=== PATIENT | female | born 1965 | race Caucasian/White ===

== ENCOUNTER → 2016-09-11 | Outpatient (CLI) | payer OTHER ==
--- NOTE | 2016-09-12 14:32 | MM ---
Reason for exam: screening (asymptomatic). Last mammogram was performed 2 years and 11 months ago. History: Patient had first child at age 34. Family history of breast cancer in maternal grandmother at age 70. Retro-pectoral saline implants in both breasts, 2007. Benign excisional biopsy of the left breast, 1989. Taking hormonal contraceptives for 11 years 8 months beginning at age 34. Physical Findings: A clinical breast exam by your physician is recommended on an annual basis and results should be correlated with mammographic findings. MG 3D Screen Mammo Imp/Cad Bilateral CC, MLO, and ID view(s) were taken. Prior study comparison: October 21, 2013, CAD bilateral diagnostic mammogram. January 16, 2012, CAD bilateral diagnostic mammogram. The breast tissue is heterogeneously dense. This may lower the sensitivity of mammography. Finding #1: There is a circumscribed oval mass in the upper outer quadrant, middle position of the left breast. Finding #2: There are heterogeneous calcifications in the posterior, middle position of right breast. Subpectoral implants x 2. New finding since October 21, 2013 and January 16, 2012. ASSESSMENT: Incomplete: need additional imaging evaluation, BI-RAD 0 RECOMMENDATION: Special view mammogram of the right breast. Ultrasound of the left breast. [facility] will attempt to contact patient to return for supplemental views and ultrasound.
== END | disposition home or self-care (01) ==
LOC: RADMAMWWP 08:21
PROVIDERS: ATTEND Obstetrics & Gynecology
DX: Z12.31 Encounter for screening mammogram for malignant neoplasm of breast (principal); R92.2 Inconclusive mammogram
CPT/HCPCS: 77063; G0202

== ENCOUNTER → 2016-09-19 | Outpatient (CLI) | payer OTHER ==
--- NOTE | 2016-09-19 10:23 | MM ---
Reason for exam: additional evaluation requested from abnormal screening. Last mammogram was performed less than 1 month ago. History: Patient had first child at age 34. Family history of breast cancer in maternal grandmother at age 70. Retro-pectoral saline implants in both breasts, 2007. Benign excisional biopsy of the left breast, 1989. Taking hormonal contraceptives for 11 years 8 months beginning at age 34. Physical Findings: Nurse did not find any significant physical abnormalities on exam. MG 3D Work Up W/Cad RT LM, CC with magnification, LM with magnification, and ID view(s) were taken of the right breast. Prior study comparison: September 11, 2016, bilateral MG 3d screen mammo imp/cad. October 21, 2013, CAD bilateral diagnostic mammogram. Finding: There are diffuse/scattered calcifications in the central position of the right breast. These results were verbally communicated with the patient and result sheet given to the patient on 09/19/16. ASSESSMENT: Probably benign, BI-RAD 3 RECOMMENDATION: Follow-up diagnostic mammogram of the right breast in 6 months.
--- NOTE | 2016-09-19 10:25 | USB ---
Reason for exam: additional evaluation requested from abnormal screening. History: Patient had first child at age 34. Family history of breast cancer in maternal grandmother at age 70. Retro-pectoral saline implants in both breasts, 2007. Benign excisional biopsy of the left breast, 1989. Taking hormonal contraceptives for 11 years 8 months beginning at age 34. US Breast Workup LT Left breast ultrasound demonstrates a 0.31 x 0.19 x 0.26cm lesion too small to characterize at 1:30 and a 0.46 x 0.18 x 0.65cm cystic cluster at 2 o'clock. These results were verbally communicated with the patient and result sheet given to the patient on 09/19/16. ASSESSMENT: Benign, BI-RAD 2 RECOMMENDATION: Return to routine screening mammogram schedule for both breasts.
== END | disposition home or self-care (01) ==
LOC: RADMAMWWP 09:06
PROVIDERS: ATTEND Obstetrics & Gynecology
DX: R92.8 Other abnormal and inconclusive findings on diagnostic imaging of breast (principal)
CPT/HCPCS: 76642; G0206; G0279

== ENCOUNTER → 2017-10-02 | Outpatient (CLI) | payer OTHER ==
--- NOTE | 2017-10-02 11:01 | WWHP ---
[facility] - HISTORY AND PHYSICAL DATE OF SERVICE: 10/02/2017 CHIEF COMPLAINT: The patient is here for her routine gynecologic exam. HPI: This is a 52-year-old G2, P2, with an LMP of approximately 2011. She states she has been essentially amenorrheic while on Depo-Provera and the Mirena IUD. She is currently on her second Mirena IUD which was placed in 08/2016. Prior to her first Mirena IUD, she used Depo-Provera for a number of years. She states she has had about 3 periods over the last 16 years. She denies any hot flashes. She has been experiencing some infrequent left breast tingling and discomfort. She states it feels like when her leg "falls asleep." The tingling can go from the left breast to the back and can last up to 10 seconds. This has been happening about once a night during the last 3 weeks, but has been less frequent in the last few days. PAST MEDICAL HISTORY: History of elevated cholesterol, which has been diet controlled. MEDICATIONS: None. ALLERGIES: SULFA and PENICILLIN, both of which caused hives. PAST SURGICAL HISTORY: Bladder sling procedure 2013, bilateral breast augmentation surgery 2017 and knee surgery in the past. PAST OB HISTORY: Two vaginal deliveries. 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 She has no history of STDs. SOCIAL HISTORY: She denies tobacco and drug use and has about 4 alcohol-containing drinks per week. She has been since 1993 and does not work outside the home. FAMILY HISTORY: Maternal grandmother had breast cancer. Mother had pancreatic cancer. Father had lung cancer. Paternal grandmother had an NH. REVIEW OF SYSTEMS: Weight has been stable. She denies respiratory, cardiac or GI problems. PHYSICAL EXAM: Blood pressure 143/98, height 5 feet 5 inches, weight 194 pounds, BMI 32. temperature 97.1, pulse 54. This is a well-developed, well-nourished, white female, who is alert and oriented x3, in no acute distress. HEENT is within normal limits. NECK: Supple without mass or thyromegaly. CHEST AND LUNGS: Clear to auscultation. HEART: Regular rate and rhythm. Breasts are without mass or discharge and they are consistent with bilateral breast implants. Axillary exam is negative for adenopathy. BACK: Negative for CVA tenderness. ABDOMEN: Soft, nontender, without palpable masses. PELVIC EXAM: Normal external genitalia. Cervix and vagina reveals a grade 2 rectocele. The cervix appears normal and there is IUD string protruding approximately 3 cm from the os. There is no unusual discharge. There is no cervical motion tenderness. There is no other evidence of prolapse. The uterus is mid position, nongravid size and nontender. There are no palpable adnexal masses or tenderness. Rectovaginal exam is negative for mass or tenderness and does confirm a small rectocele and this is negative for occult blood. EXTREMITIES: Nontender. IMPRESSION: 1. A 52-year-old female, doing well with the Mirena IUD. 2. Asymptomatic grade 2 rectocele. 3. Many years of amenorrhea secondary to the Mirena IUD and previous use of the Depo- Provera. Probable perimenopause based on her age. 4. Intermittent left breast paresthesias. PLAN: 1. Pap smear was performed. 2. Self breast examination was discussed. 3. I have recommended a diagnostic mammogram because of a previous abnormal mammogram on 09/11/2016. Following a right-sided workup on 09/19/2016, a diagnostic right mammogram was recommended after 6 months, but she states she did not have this done. Diagnostic mammogram was ordered and this will also be used to evaluate the left-sided paresthesias that she has noticed intermittently. There are no significant physical findings on breast exam at this time. 4. Osteoporosis prevention was discussed. 5. She will return in one year and p.r.n. MMODL / IJN: [id number] /
== END | disposition home or self-care (01) ==
LOC: WWCWWP 08:05
PROVIDERS: ATTEND Obstetrics & Gynecology
DX: Z53.9 Procedure and treatment not carried out, unspecified reason (principal)

== ENCOUNTER → 2017-10-23 | Outpatient (CLI) | payer OTHER ==
--- NOTE | 2017-10-23 09:44 | MM ---
Reason for exam: additional evaluation requested from prior study. Last mammogram was performed 10 months ago. History: Patient had first child at age 34. Family history of breast cancer in maternal grandmother at age 70. Retro-pectoral saline implants in both breasts, 2007. Benign excisional biopsy of the left breast, 1989. Taking hormonal contraceptives for 11 years 8 months beginning at age 34. Physical Findings: Nurse did not find any significant physical abnormalities on exam. MG 3D Diag Mammo Imp W/Cad SANDRA Bilateral CC, MLO, and ID view(s) were taken. Prior study comparison: December 13, 2016, mammogram, performed at [facility]. September 19, 2016, right breast MG 3d work up w/cad RT. The breast tissue is heterogeneously dense. This may lower the sensitivity of mammography. There is chronic nodularity bilaterally. There is no dominant lesion. Stable bilateral implants. No significant new findings when compared with previous films. These results were verbally communicated with the patient and result sheet given to the patient on 10/23/17. ASSESSMENT: Benign, BI-RAD 2 RECOMMENDATION: Routine screening mammogram of both breasts in 1 year. Manage patient on a clinical basis.
== END | disposition home or self-care (01) ==
LOC: RADMAMWWP 08:08
PROVIDERS: ATTEND Obstetrics & Gynecology
DX: R92.8 Other abnormal and inconclusive findings on diagnostic imaging of breast (principal); N64.4 Mastodynia; Z98.82 Breast implant status
CPT/HCPCS: 77066; G0279

== ENCOUNTER → 2019-05-05 | Outpatient (CLI) | payer OTHER ==
[2019-05-05 09:46] VITALS: BP 133/91; PULSE 73; RESP 16; TEMP 97.8; BMI 31.6
--- NOTE | 2019-05-05 10:28 | P.HPOB ---
History of Present Illness H&P Date: 05/05/19 Chief Complaint: The patient is here for her routine gynecologic exam and ma mmogram. This is a 53-year-old with an LMP of 2011. The patient has a Marine IUD in place since August 2016. This is her 2nd Thuy IUD. She states she has noticed occasional infrequent vaginal odor without discharge. She currently does not have any odor today. She denies hot flashes. She has felt colder than usual. She states she has had difficulty losing weight with diet and exercise. Review of Systems The patient has lost 4 pounds over the last year. She denies respiratory, cardiac, or G.I. problems. Past Medical History Past Medical History: Hyperlipidemia Additional Past Medical History / Comment(s): Elevated cholesterol which has been diet controlled. 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 History of Any Multi-Drug Resistant Organisms: None Reported Past Surgical History: Breast Surgery, Orthopedic Surgery Additional Past Surgical History / Comment(s): Bladder sling procedure 2013, bilateral breast augmentation 2017. Knee surgery. Past Psychological History: No Psychological Hx Reported Smoking Status: Never smoker Past Alcohol Use History: Occasional (0-1 per week) Past Drug Use History: None Reported Additional History: She has been since 1993 and does not work outside of the home. - Past Family History Mother Family Medical History: Cancer Additional Family Medical History / Comment(s): Pancreatic cancer. Maternal grandmother had breast cancer. Father Family Medical History: Cancer Additional Family Medical History / Comment(s): Lung cancer. Paternal grandmother had an ME. Medications and Allergies Home Medications Medication Instructions Recorded Confirmed Type No Known Home Medications 05/05/19 05/05/19 History Allergies Allergy/AdvReac Type Severity Reaction Status Date / Time Penicillins AdvReac Rash/Hives Unverified 05/05/19 09:42 Sulfa (Sulfonamide AdvReac Rash/Hives Unverified 05/05/19 09:42 Antibiotics) Exam Vital Signs Temp Pulse Resp BP Pulse Ox 05/05/19 09:43 97.8 F 73 16 133/91 98 Intake and Output 05/04/19 05/05/19 05/05/19 22:59 06:59 14:59 Other: Weight 86.183 kg Height 5'5", weight 190 pounds, BMI 31.6. This is a well-developed well-nourished white female who is alert and oriented times 3 in no acute distress. HEENT: Within normal limits. NECK: Supple without mass or thyromegaly. CHEST AND LUNGS: Clear to auscultation. HEART: Regular rate and rhythm. BREASTS: Are without mass or discharge. Consistent with bilateral implants. AXILLARY EXAM: Negative for adenopathy. BACK: Negative for CVA tenderness. ABDOMEN: Soft, nontender, without palpable masses. PELVIC EXAM: Normal external genitalia. Cervix shows a IUD string protruding approximately 2.5 cm. There is an endocervical polyp measuring approximately 4 mm and has a benign parents. There is no unusual discharge. No vaginal odor is noted. There i a stable grade to rectocele with no other evidence of prolapse. The uterus is midposition, nongravid size and nontender. There are no palpable adnexal masses or tenderness. RECTAL EXAM:rectal vaginal exam is negative for mass or tenderness and is negative for occult blood. EXTREMITIES: Nontender. IMPRESSION: 1 53 year old female doing well with Mirena IUD. 2. Benign appearing small endocervical polyp. 3. Asymptomatic grade to rectocele which is stable. 4. Occasional possible vaginal odor per the patient with no significant physical findings at this time. PLAN: 1. Pap smear was performed because of the finding of the endocervical polyp. If benign, conservative management. 2. Self breast awareness was discussed with the patient. 3. Screening mammogram will be done today. 4. I have recommended that she speak with Dr. Valdivia about screening colonoscopy as well as screening blood work. She will also talk to her about possible thyroid testing because of her symptoms. 5. Osteoporosis prevention was discussed. I have stressed the importance of adequate calcium, vitamin D and regular exercise. Recommended amounts of calcium and vitamin D were also discussed. 6. She was advised to return in one year for her annual well woman exam.
--- NOTE | 2019-05-06 10:50 | MM ---
Reason for exam: screening (asymptomatic). Last mammogram was performed 1 year and 6 months ago. History: Patient had first child at age 34. Family history of breast cancer in maternal grandmother at age 70. Retro-pectoral saline implants in both breasts, 2007. Benign excisional biopsy of the left breast, 1989. Taking hormonal contraceptives for 11 years 8 months beginning at age 34. Physical Findings: A clinical breast exam by your physician is recommended on an annual basis and results should be correlated with mammographic findings. MG 3D Screen Mammo Imp/Cad Bilateral CC, MLO, and ID view(s) were taken. Prior study comparison: October 23, 2017, bilateral MG 3d diag mammo imp w/cad SANDRA. December 13, 2016, mammogram, performed at [facility]. The breast tissue is heterogeneously dense. This may lower the sensitivity of mammography. Finding: There is a typically benign stable circumscribed oval mass in the lower inner quadrant, middle depth of the left breast. There are benign appearing calcifications. No suspicious abnormality. Bilateral retropectoral saline implants. No significant changes in finding since October 23, 2017 and December 13, 2016. ASSESSMENT: Benign, BI-RAD 2 RECOMMENDATION: Routine screening mammogram of both breasts in 1 year.
== END | disposition home or self-care (01) ==
LOC: WWCWWP 09:34
PROVIDERS: ATTEND Obstetrics & Gynecology
DX: Z12.31 Encounter for screening mammogram for malignant neoplasm of breast (principal); Z98.82 Breast implant status
CPT/HCPCS: 77063; 77067

== ENCOUNTER 2020-07-15 10:01 | Day surgery (SDC) | payer OTHER ==
[2020-07-13 14:17] VITALS: BMI 28.3
[~2020-07-15 10:01] MED LIST: LACTATED RINGERS 1,000 ML IV SCH
[2020-07-15 10:25] VITALS: RESP 16; TEMP 99.2
[2020-07-15] MEDS ORDERED: LIDOCAINE 1% INJ 10MG/ML (20 ML MDV) ONE (11:27)
[2020-07-15] MEDS ORDERED: PROPOFOL 10 MG/ML 20 ML VIAL IV ONE (11:27)
--- NOTE | 2020-07-15 11:50 | P.PCN ---
Date of Procedure: 07/15/20 Procedure(s) Performed: BRIEF HISTORY: Patient is a 54-year-old pleasant female scheduled for an elective colonoscopy as a part of screening for colorectal neoplasia. PROCEDURE PERFORMED: Colonoscopy. PREOPERATIVE DIAGNOSIS: Screening for colon cancer. IV sedation per Anesthesia. PROCEDURE: After informed consent was obtained, the patient, was brought into the endoscopy unit. IV sedation was administered by Anesthesia under continuous monitoring. Digital rectal examination was normal. Initially the Olympus CF-160 flexible video colonoscope was then inserted in the rectum, gradually advanced into the cecum without any difficulty. Careful examination was performed as the scope was gradually being withdrawn. Ileocecal valve and the appendiceal orifice were visualized and appeared normal. Prep was excellent. Mucosa of the cecum, ascending colon, transverse colon, descending colon, sigmoid colon, and rectum appeared normal. Retroflexion was performed in the rectum and no lesions were seen. The patient tolerated the procedure well. IMPRESSION: Normal-appearing colon from rectum to cecum with no evidence of colorectal neoplasia. RECOMMENDATIONS: Findings of this examination were discussed with the patient as well as her family. She was advised to have a repeat screening colonoscopy in 10 years
[2020-07-15 12:48] VITALS: BP 146/87; PULSE 56
== END 2020-07-15 12:35 | disposition home or self-care (01) ==
LOC: ORWHC2ENDO 10:01
PROVIDERS: ATTEND Internal Medicine Gastroenterology
DX: Z12.11 Encounter for screening for malignant neoplasm of colon (principal); Z88.0 Allergy status to penicillin; Z88.2 Allergy status to sulfonamides; E66.9 Obesity, unspecified; Z68.31 Body mass index [BMI] 31.0-31.9, adult
CPT/HCPCS: 81025; J2001; J2704; G0121

== ENCOUNTER → 2020-11-01 | Outpatient (CLI) | payer OTHER ==
[2020-11-01 08:10] VITALS: BP 132/92; PULSE 67; RESP 16; TEMP 98.3
--- NOTE | 2020-11-01 09:08 | P.HPOB ---
History of Present Illness H&P Date: 11/01/20 Chief Complaint: The patient is here for her routine gynecologic exam and ma mmogram. This is a 55-year-old with an LMP of 2011. The patient has been amenorrheic since she started using the Mirena IUD in 2011. Her second Mirena IUD was placed in July 2016. She denies any significant hot flashes, but states she no longer is cold like she used to be. She has been experiencing insomnia were she finds it difficult to stay asleep through the entire night and this has gone on for 10 years. She is otherwise without complaints. Review of Systems The patient has lost 4 pounds over the last year. She denies respiratory, cardiac, or G.I. problems. Past Medical History Past Medical History: Hyperlipidemia Additional Past Medical History / Comment(s): was hospitalized October 2019 for staph infection in foot. 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 History of Any Multi-Drug Resistant Organisms: None Reported Past Surgical History: Breast Surgery, Orthopedic Surgery Additional Past Surgical History / Comment(s): Bladder sling procedure 2013, bilateral breast augmentation 2017. Knee surgery. Colonoscopy 2020(next after 10yr) Past Anesthesia/Blood Transfusion Reactions: No Reported Reaction Past Psychological History: No Psychological Hx Reported Smoking Status: Never smoker Past Alcohol Use History: Rare (2 per Year) Past Drug Use History: None Reported Additional History: She has been since 1993 and does not work outside the home. She exercises with weights regularly. - Past Family History Mother Family Medical History: Cancer Additional Family Medical History / Comment(s): Pancreatic cancer. Maternal grandmother had breast cancer. Father Family Medical History: Cancer Additional Family Medical History / Comment(s): Lung cancer. Paternal grandmother had an AR. Medications and Allergies Home Medications Medication Instructions Recorded Confirmed Type Levonorgestrel [Mirena] 1 each IY DAILY 05/05/19 11/01/20 History Cbd Gummies For Recovery 2 cap PO DAILY 11/01/20 11/01/20 History Cholecalciferol [Vitamin D3 (25 25 mcg PO DAILY 11/01/20 11/01/20 History Mcg = 1000 Iu)] Inulin/Chromium Picolinate [Fiber 1 each PO DAILY 11/01/20 11/01/20 History Gummies Chew] Vitamin B Complex 1 each PO DAILY 11/01/20 11/01/20 History Z-Quil 2 tab PO HS 11/01/20 11/01/20 History Zinc 50 mg PO DAILY 11/01/20 11/01/20 History Allergies Allergy/AdvReac Type Severity Reaction Status Date / Time Penicillins AdvReac Rash/Hives Unverified 11/01/20 08:00 Sulfa (Sulfonamide AdvReac Rash/Hives Unverified 11/01/20 08:00 Antibiotics) Exam Vital Signs Temp Pulse Resp BP Pulse Ox 11/01/20 08:05 98.3 F 67 16 132/92 98 Intake and Output 10/31/20 11/01/20 11/01/20 22:59 06:59 14:59 Other: Weight 84.368 kg Height 5 feet 4 inches, weight 186 pounds, BMI 31.9. This is a well-developed well-nourished white female who is alert and oriented times 3 in no acute distress. HEENT: Within normal limits. NECK: Supple without mass or thyromegaly. CHEST AND LUNGS: Clear to auscultation. HEART: Regular rate and rhythm. BREASTS: Are without mass or discharge. The breasts are consistent with bilateral implants. AXILLARY EXAM: Negative for adenopathy. BACK: Negative for CVA tenderness. ABDOMEN: Soft, nontender, without palpable masses. PELVIC EXAM: Normal external genitalia. Cervix has an endocervical polyp measuring presently 5 mm and has a benign appearance. The IUD string protrudes from the cervix approximately 2 cm. There is no unusual discharge. There is a grade 2 rectocele which is stable from her previous exam. The uterus is midposition, nongravid size and nontender. There are no palpable adnexal masses or tenderness. RECTAL EXAM: Rectovaginal exam is negative for mass or tenderness and is negative for occult blood. The exam is also consistent with a small rectocele. EXTREMITIES: Nontender. IMPRESSION: 1. 55-year-old perimenopausal female doing well with the Mirena IUD. 2. Benign-appearing endocervical polyp which has been followed conservatively. 3. Asymptomatic grade 2 rectocele which is stable. 4. Insomnia which may or may not be related to menopausal changes. Since she has had some degree of insomnia for 10 years, I doubt that it is completely due to the menopausal change. PLAN: 1. Pap smear was deferred since she had a normal one on 05/05/2019. 2. Self breast awareness was discussed with the patient. 3. Screening mammogram will be done today. 4. We will continue to follow up the endocervical polyp and grade 2 rectocele conservatively. 5. Blood tests today will include FSH, estradiol, and TSH. The order slip was given to the patient for this. 6. If the blood tests are consistent with full menopause, we will consider removing the Mirena IUD. If it is not consistent with menopause, we will consider using the Mirena IUD until she is menopausal since that should be in the near future. She understands the Mirena IUD is approved for 5 years use, but since the IUD still has much of its effectiveness beyond 5 years and since she is very close to the full menopause, there is probably benefit to extending its use slightly beyond 5 years. 7. She was advised to return in one year for her annual well woman exam.
--- NOTE | 2020-11-01 12:01 | MM ---
Reason for exam: screening (asymptomatic). Last mammogram was performed 1 year and 6 months ago. History: Patient had first child at age 34. Family history of breast cancer in maternal grandmother at age 70. Retro-pectoral saline implants in both breasts, 2007. Benign excisional biopsy of the left breast, 1989. Taking hormonal contraceptives for 11 years 8 months beginning at age 34. Physical Findings: A clinical breast exam by your physician is recommended on an annual basis and results should be correlated with mammographic findings. MG 3D Screen Mammo Imp/Cad Bilateral CC, MLO, and ID view(s) were taken. Prior study comparison: May 05, 2019, bilateral MG 3d screen mammo imp/cad. October 23, 2017, bilateral MG 3d diag mammo imp w/cad SANDRA. The breast tissue is heterogeneously dense. This may lower the sensitivity of mammography. Finding #1: There is a 7 mm circumscribed round mass in the upper outer quadrant, middle position of the right breast including developing nodularity in the right breast. Finding #2: There are typically benign round calcifications in both breasts. Bilateral subpectoral implants redemonstrated. ASSESSMENT: Incomplete: need additional imaging evaluation, BI-RAD 0 RECOMMENDATION: Ultrasound of the right breast. [facility] will attempt to contact patient to return for ultrasound.
[2020-11-01 15:23] LABS: Follicle Stimulating Hormone 83.8 mIU/mL
[2020-11-01 15:26] LABS: Estradiol 17.4 pg/mL
--- NOTE | 2020-11-02 14:20 | P.PN ---
Progress Note - Text Progress Note Date: 11/02/20 OUTPATIENT FOLLOW-UP NOTE TEST(S)/RESULTS: Test results from 11/01/2020 include screening mammogram that requires a right breast ultrasound follow-up. FSH was elevated 83.8, estradiol 17.4 consistent with postmenopausal, and TSH was normal. METHOD OF NOTIFICATION: She was notified by phone. PATIENT COMMENTS: The patient has an appointment for the right breast ultrasound on 11/08/2020. DIAGNOSIS: Screening mammogram requiring right breast workup. Blood tests consistent with postmenopausal status. DISCUSSION: With the FSH and estradiol being consistent with menopause, she no longer is in need of control and we can remove the Mirena IUD. She will make an appointment at a later date to have this removed sometime this year. She will call if she is having significant menopausal symptoms. She denies any significant hot flashes but has had insomnia which she has had for more than 10 years. PLAN: As above. She was advised to return in one year for her annual well woman exam and as needed.
== END ==
LOC: WWCWWP 07:46
PROVIDERS: ATTEND Obstetrics & Gynecology
DX: N95.9 Unspecified menopausal and perimenopausal disorder (principal); N84.1 Polyp of cervix uteri; N81.6 Rectocele; G47.00 Insomnia, unspecified; E78.5 Hyperlipidemia, unspecified; Z12.31 Encounter for screening mammogram for malignant neoplasm of breast
CPT/HCPCS: 77063; 77067; 82670; 83001; 84443

== ENCOUNTER → 2020-11-08 | Outpatient (CLI) | payer OTHER ==
--- NOTE | 2020-11-08 13:43 | USB ---
Reason for exam: additional evaluation requested from abnormal screening. History: Patient had first child at age 34. Family history of breast cancer in maternal grandmother at age 70. Retro-pectoral saline implants in both breasts, 2007. Benign excisional biopsy of the left breast, 1989. Taking hormonal contraceptives for 11 years 8 months beginning at age 34. Physical Findings: Nurse Summary: 0.5cm nodule in the right breast at 8 o'clock (nurse mj). US Breast Workup Limited RT Right limited breast ultrasound including focal area of concern, retroareolar and axilla demonstrates a 0.7 x 0.5 x 0.6cm mixed, complex cyst at 8 o'clock. These results were verbally communicated with the patient and result sheet given to the patient on 11/08/20. ASSESSMENT: Probably benign, BI-RAD 3 RECOMMENDATION: Follow-up diagnostic mammogram and ultrasound of the right breast in 6 months.
--- NOTE | 2020-11-09 10:16 | P.PN ---
Progress Note - Text Progress Note Date: 11/09/20 The patient was given the results of her right breast workup at the time of the imaging studies on 11/08/2020. The assessment was probably benign. The recommendation was for a follow-up diagnostic mammogram and ultrasound of the right breast in 6 months. The order slip will be mailed to the patient for this.
== END ==
LOC: RADUSWWP 12:45
PROVIDERS: ATTEND Obstetrics & Gynecology
DX: R92.8 Other abnormal and inconclusive findings on diagnostic imaging of breast (principal); Z80.3 Family history of malignant neoplasm of breast

== ENCOUNTER → 2021-05-25 | Outpatient (CLI) | payer OTHER ==
--- NOTE | 2021-05-25 14:45 | MM ---
Reason for exam: follow-up at short interval from prior study. Last mammogram was performed 7 months ago. History: Patient had first child at age 34. Family history of breast cancer in maternal grandmother at age 70. Retro-pectoral saline implants in both breasts, 2007. Benign excisional biopsy of the left breast, 1989. Taking hormonal contraceptives for 11 years 8 months beginning at age 34. Physical Findings: Nurse Summary: 0.5cm nodule in the right breast at 8 o'clock (nurse TM). MG 3D Diag Mammo Imp W/Cad RT CC, MLO, and ID view(s) were taken of the right breast. Prior study comparison: November 08, 2020, right breast US breast workup limited RT. November 01, 2020, bilateral MG 3d screen mammo imp/cad. May 05, 2019, bilateral MG 3d screen mammo imp/cad. There are scattered fibroglandular densities. Retropectoral saline implant. 9-10 o'clock circumscribed nodule versus 7mm previously. Overlying palpable marker. These results were verbally communicated with the patient and result sheet given to the patient on 05/25/21. ASSESSMENT: Incomplete: need additional imaging evaluation, BI-RAD 0 RECOMMENDATION: Ultrasound of the right breast.
--- NOTE | 2021-05-25 14:47 | USB ---
Reason for exam: additional evaluation requested from abnormal screening. History: Patient had first child at age 34. Family history of breast cancer in maternal grandmother at age 70. Retro-pectoral saline implants in both breasts, 2007. Benign excisional biopsy of the left breast, 1989. Taking hormonal contraceptives for 11 years 8 months beginning at age 34. US Breast Limited RT Right limited breast ultrasound including focal area of concern, retroareolar and axilla demonstrates a 0.6 x 0.7 x 0.7cm cystic lesion with debris at 8 o'clock. Stable for 6 months. As this is new and palpable, continued follow up mammogram recommended. Scanned 6-9 o'clock. These results were verbally communicated with the patient and result sheet given to the patient on 05/25/21. ASSESSMENT: Probably benign, BI-RAD 3 RECOMMENDATION: Follow-up diagnostic mammogram of both breasts in 6 months.
== END ==
LOC: RADMAMWWP 12:45
PROVIDERS: ATTEND Obstetrics & Gynecology
DX: N60.01 Solitary cyst of right breast (principal); N64.89 Other specified disorders of breast; Z80.3 Family history of malignant neoplasm of breast
CPT/HCPCS: 77061; 77065

== ENCOUNTER → 2022-01-24 | Outpatient (CLI) | payer OTHER ==
[2022-01-24 09:30] VITALS: BP 134/89; PULSE 84; RESP 17; TEMP 98.3
--- NOTE | 2022-01-24 10:32 | P.HPOB ---
History of Present Illness H&P Date: 01/24/22 Chief Complaint: The patient is here for her routine gynecologic exam and ma mmogram. This is a 56-year-old with an LMP of 2011. The patient had has a Mirena IUD in place since July 2016. She denies any significant hot flashes. FSH on 11/01/2020 was 84 and estradiol was 17. She is without gynecologic complaints and denies any vaginal bleeding. She has been amenorrheic since she first started using the Mirena IUD in 2011. She would like to confirm that she is menopausal to make sure she does not need to use control anymore. She continues to have insomnia and she has had this for many years. She recently started using CBD gummies to help her sleep and this seems to be helpful. Review of Systems The patient has lost 10 pounds over the last year. Weight loss has been intentional and she has been exercising regularly. She denies respiratory, cardiac, or G.I. problems. 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 History of Any Multi-Drug Resistant Organisms: None Reported Past Surgical History: Breast Surgery, Orthopedic Surgery Additional Past Surgical History / Comment(s): Bladder sling procedure 2013, bilateral breast augmentation (saline implants)2017. Knee surgery. Colonoscopy 2020(next after 10yr) Past Anesthesia/Blood Transfusion Reactions: No Reported Reaction Past Psychological History: No Psychological Hx Reported Smoking Status: Never smoker Past Alcohol Use History: Rare (2 per year) Past Drug Use History: None Reported Additional History: She has been since 1993 and does not work outside of the home. She exercises regularly. - Past Family History Mother Family Medical History: Cancer Additional Family Medical History / Comment(s): Pancreatic cancer. Maternal grandmother had breast cancer. Father Family Medical History: Cancer Additional Family Medical History / Comment(s): Lung cancer. Paternal grandmother had an CA. Medications and Allergies Home Medications Medication Instructions Recorded Confirmed Type levonorgestreL [Mirena] 1 each IY DAILY 05/05/19 01/24/22 History Cbd Gummies For Recovery 2 cap PO DAILY 11/01/20 01/24/22 History Cholecalciferol [Vitamin D3 (25 25 mcg PO DAILY 11/01/20 01/24/22 History Mcg = 1000 Iu)] Vitamin B Complex 1 each PO DAILY 11/01/20 01/24/22 History Atorvastatin Calcium [Lipitor] 15 mg PO DAILY 01/24/22 01/24/22 History Multivitamin [Multivitamins Adult 1 tab PO DAILY 01/24/22 01/24/22 History Gummies] Prasterone (Dhea) [Dhea 25] 25 mg PO DAILY 01/24/22 01/24/22 History Ubidecarenone [Co Q-10] 300 mg PO DAILY 01/24/22 01/24/22 History Allergies Allergy/AdvReac Type Severity Reaction Status Date / Time Penicillins AdvReac Rash/Hives Unverified 01/24/22 09:23 Sulfa (Sulfonamide AdvReac Rash/Hives Unverified 01/24/22 09:23 Antibiotics) Exam Vital Signs Temp Pulse Resp BP Pulse Ox 01/24/22 09:27 98.3 F 84 17 134/89 97 Intake and Output 01/23/22 01/24/22 01/24/22 22:59 06:59 14:59 Other: Weight 79.832 kg Height 5 feet 5 inches, weight 176 pounds, BMI 29.3. This is a well-developed well-nourished white female who is alert and oriented times 3 in no acute distress. HEENT: Within normal limits. NECK: Supple without mass or thyromegaly. CHEST AND LUNGS: Clear to auscultation. HEART: Regular rate and rhythm. BREASTS: Are without mass or discharge. Breasts are consistent with bilateral implants. Implants are soft. AXILLARY EXAM: Negative for adenopathy. BACK: Negative for CVA tenderness. ABDOMEN: Soft, nontender, without palpable masses. PELVIC EXAM: Normal external genitalia. Vagina appears normal. The cervix has a polyp at the opening measuring 10 mm which is on a thin stalk. The IUD string is visible and protrudes from the cervix approximately 2 cm. There is no unusual discharge. There is no evidence of prolapse. The uterus is midposition, nongravid size and nontender. There are no palpable adnexal masses or tenderness. RECTAL EXAM: Rectovaginal exam is negative for mass or tenderness and is negative for occult blood. EXTREMITIES: Nontender. IMPRESSION: 1. 56-year-old perimenopausal female with a Mirena IUD in place since July 2016, with a 1.0 cm cervical polyp which has grown in size from her last exam. 2. Amenorrhea initially secondary to the Mirena IUD and now probably secondary to menopause. 3. No significant vasomotor symptoms. PLAN: 1. Pap smear coat test was performed. 2. Self breast awareness was discussed with the patient. We have also discussed symptoms associated with inflammatory breast cancer. 3. Diagnostic bilateral mammogram is due and this will be done today. 4. Because she has been without significant menopausal symptoms she would like to confirm with blood tests that she is menopausal and to confirm that control is no longer needed. FSH and estradiol will be drawn today. 5. Because the cervical polyp has increased in size approximately twofold, I have recommended removal of the cervical polyp. We will plan on removing the Mirena IUD at that time. These procedures will be scheduled. 6. She was advised to return in one year for her annual well woman exam.
--- NOTE | 2022-01-24 12:44 | MM ---
BI-RAD: 2d Benign Finding(s) Diagnostic Follow Up: 1 Year Follow-Up Reason for exam: additional evaluation requested from prior study. Last mammogram was performed 1 year and 3 months ago. History: Patient had first child at age 34. Family history of breast cancer in maternal grandmother at age 70. Retro-pectoral saline implants in both breasts, 2007. Benign excisional biopsy of the left breast, 1989. Taking hormonal contraceptives for 11 years 8 months beginning at age 34. Physical Findings: A clinical breast exam by your physician is recommended on an annual basis and results should be correlated with mammographic findings. MG 3D Diag Mammo Imp W/Cad SANDRA Bilateral CC, MLO, and ID view(s) were taken. Prior study comparison: 10/23/17 Bilateral Diagnostic Mammogram, [facility]. 11/01/20 Bilateral Screening Mammogram, [facility]. 05/25/21 Right Diagnostic Mammogram, [facility]. The breast tissue is heterogeneously dense. This may lower the sensitivity of mammography. There is an 8mm mass in the right breast outer quadrant central position. There are benign appearing calcifications bilaterally. Stable chronic nodularity in the right breast. These results were verbally communicated with the patient at the time of exam. ASSESSMENT: Suspicious, BI-RAD 4 RECOMMENDATION: Ultrasound core biopsy of the right breast. CHELI
== END ==
LOC: WWCWWP 09:16
PROVIDERS: ATTEND Obstetrics & Gynecology
DX: Z01.419 Encounter for gynecological examination (general) (routine) without abnormal findings (principal); R92.8 Other abnormal and inconclusive findings on diagnostic imaging of breast; N91.2 Amenorrhea, unspecified; E78.5 Hyperlipidemia, unspecified; Z78.0 Asymptomatic menopausal state; N84.1 Polyp of cervix uteri; Z97.5 Presence of (intrauterine) contraceptive device; Z88.0 Allergy status to penicillin; Z88.2 Allergy status to sulfonamides
CPT/HCPCS: 77062; 77066

== ENCOUNTER → 2022-01-24 | Outpatient (CLI) | payer OTHER ==
[2022-01-24 18:19] LABS: Estradiol 7.9 pg/mL; Follicle Stimulating Hormone 93.5 mIU/mL
== END | disposition home or self-care (01) ==
LOC: LABWHC1 10:51
PROVIDERS: ATTEND Obstetrics & Gynecology
DX: N91.1 Secondary amenorrhea (principal)
CPT/HCPCS: 36415; 82670; 83001

== ENCOUNTER → 2022-01-31 | Day surgery (SDC) | payer OTHER ==
[2022-01-31 10:08] VITALS: BP 130/88; PULSE 86; RESP 17; TEMP 97.9
--- NOTE | 2022-01-31 11:21 | P.PCN ---
Date of Procedure: 01/31/22 Preoperative Diagnosis: Growing cervical polyp and Mirena IUD. Postoperative Diagnosis: Same. Procedure(s) Performed: Removal of IUD and removal of cervical polyp. Anesthesia: none Surgeon: Herbie Kemp Estimated Blood Loss (ml): 1 Pathology: other (Cervical polyp) Condition: stable Disposition: same day Indications for Procedure: This was a 56-year-old menopausal female who had a cervical polyp which has increased in size over the past 2-3 years. In 2019 and measured approximate 4 mm. On recent exam the polyp measured approximately 10 mm. FSH and estradiol testing confirmed she is postmenopausal. Her Mirena IUD was placed in July 2016 and was due to be removed. Operative Findings: The cervical polyp appeared somewhat deflated and measured approximately 8 mm. The polyp had a thin base going to the endocervix. A small amount of polypoid tissue was also noted near the base after the main part of the polyp was removed. That small tissue measured approximately 2-3 mm. The IUD removed and appeared intact and was a non-copper IUD. Description of Procedure: Prior to the procedure I reviewed the procedures as well as possible risks and complications including infection, bleeding or damage to the uterine tissue. All questions were answered. I also reviewed test results including FSH of 93.5 and estradiol of 7.9 which are consistent with menopause. We also discussed her recent mammogram which was felt to be suspicious and she is scheduled for a right breast biopsy later this month with Dr. Roderick Stewart. The patient was placed in the lithotomy position and the speculum was inserted into the vagina. The cervical polyp had a more deflated look compared to her exam last week and was slightly smaller, approximately 8 mm in size. Betadine solution was used to prep the cervix and vagina. The polyp was grasped with a ring forceps. The thin base of the polyp ran into the endocervix adjacent to the IUD string. I decided to remove the IUD prior to removing the polyp because I did not want to risk accidentally cutting the IUD string. The IUD was removed without difficulty by pulling on the IUD string. The cervical polyp was then removed by cutting the thin base within the endocervical canal. A 2-3mm polypoid tissue was noted just within the endocervix near work where the polyp was removed. A cervical biopsy instrument was used to remove this small amount of polypoid tissue and this was sent with the polyp specimen. Gentle curettage with a Kevorkian curette was then done at the base of where the polyp was removed there is minimal bleeding at the site where the small polypoid tissue was removed and this was made hemostatic with a silver nitrate stick. Estimated blood loss was 1 ml. The patient tolerated the procedure well. Postprocedure blood pressure was 111/74 and the pulse was 72. The patient was discharged home in stable condition. Discharge instructions included avoiding sexual activity for 7 days after bleeding has completely stopped. She was also instructed to call if she has problems including unusual pain, heavy bleeding, fever or problems. She can take ibuprofen [id number] as directed as needed for minor pain or cramping. The polypoid tissue was sent for pathological examination.
--- NOTE | 2022-02-06 10:24 | P.PN ---
Progress Note - Text Progress Note Date: 02/06/22 OUTPATIENT FOLLOW-UP NOTE TEST(S)/RESULTS: Pathology from the 01/31/2022 removal of the cervical polyp shows a benign endocervical polyp. METHOD OF NOTIFICATION: The patient was notified by phone. PATIENT COMMENTS: The patient states she did have some cramping after the procedure last week and this resolved. She denies any more vaginal bleeding. DIAGNOSIS: Benign endocervical polyp DISCUSSION: She does have a right breast biopsy appointment scheduled for 02/19/2022 with follow-up with Dr. Roderick Stewart. PLAN: As above.
== END ==
LOC: WWCWWP 09:51
PROVIDERS: ATTEND Obstetrics & Gynecology
DX: N84.1 Polyp of cervix uteri (principal); Z30.432 Encounter for removal of intrauterine contraceptive device; N95.9 Unspecified menopausal and perimenopausal disorder
CPT/HCPCS: 88305

== ENCOUNTER → 2022-02-16 | Outpatient (CLI) | payer OTHER ==
[2022-02-16 14:10] VITALS: BP 145/96; PULSE 82; RESP 17; TEMP 97.9
--- NOTE | 2022-02-16 15:01 | P.GSHP ---
History of Present Illness H&P Date: 02/16/22 Chief Complaint: abnormal right breast mammogram Jennifer is a 56-year-old white female status post bilateral mammogram on 6121. This revealed an 8 mm mass in the right breast upper outer quadrant central position. It was recommended that the patient undergo an ultrasound core biopsy of the right breast. She did not have an ultrasound at the most recent visit. She does not feel any lumps masses or nodules of concern in either breast. She is not complaining of any nipple discharge or skin changes. She was scheduled for a breast biopsy in the past possibly 5 years ago on her left breast however when she went for the biopsy which was going to be a stereotactic core biopsy of the procedure was canceled. She has bilateral breast implants, these were placed 11 years ago. She has not problems with them. They are saline. There is no history of any trauma or i nfection in the breast. Caffeine: 1 cup/day nicotine: none hormones: none BCP: 5 years in her 20's; then IUD and was removed chocolate: occasional Family history: mother: pancreatic cancer father: lung cancer maternal grandmother: breast cancer Hormonal History: menarche: 14 , breast fed: yes, age at first : 34 menopause: 54 Surgical History: ACL right knee cyst removed from wrist cyst removed from foot bilateral breast implants cyst removed from left chest Medical History: none Social History: nicotine: none alcohol: none drugs: none - Constitutional Constitutional: Denies chills, Denies fever - EENT Eyes: denies blurred vision, denies pain Ears: deny: decreased hearing, tinnitus Ears, nose, mouth and throat: Denies headache, Denies sore throat - Breasts Breasts: bilateral: as per HPI - Cardiovascular Cardiovascular: Denies chest pain, Denies shortness of breath - Respiratory Respiratory: Denies cough, Denies 7 - Gastrointestinal Gastrointestinal: Denies abdominal pain, Denies diarrhea, Denies nausea, Denies vomiting - Genitourinary (Female) Genitourinary: Denies dysuria, Denies hematuria - Menstruation Menstruation: Reports postmenopausal - Musculoskeletal Musculoskeletal: Denies myalgias - Integumentary Integumentary: Denies pruritus, Denies rash - Neurological Neurological: Denies numbness, Denies weakness - Psychiatric Psychiatric: Denies anxiety, Denies depression - Endocrine Endocrine: Denies fatigue, Denies weight change - Hematologic/Lymphatic Comment: none - Allergic/Immunologic Allergic/Immunologic: Reports as per HPI Past Medical History Past Medical History: Hyperlipidemia 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 History of Any Multi-Drug Resistant Organisms: None Reported Past Surgical History: Breast Surgery, Orthopedic Surgery Additional Past Surgical History / Comment(s): Bladder sling procedure 2013, bilateral breast augmentation (saline implants)2017. Knee surgery. Colonoscopy 2020(next after 10yr) Past Anesthesia/Blood Transfusion Reactions: No Reported Reaction Past Psychological History: No Psychological Hx Reported Smoking Status: Never smoker Past Alcohol Use History: Rare Past Drug Use History: None Reported - Past Family History Mother Family Medical History: Cancer Additional Family Medical History / Comment(s): Pancreatic cancer. Maternal grandmother had breast cancer. Father Family Medical History: Cancer Additional Family Medical History / Comment(s): Lung cancer. Paternal grandmother had an [place]. Medications and Allergies Home Medications Medication Instructions Recorded Confirmed Type Cholecalciferol [Vitamin D3 (25 25 mcg PO DAILY 11/01/20 02/06/22 History Mcg = 1000 Iu)] Vitamin B Complex 1 each PO DAILY 11/01/20 02/06/22 History Atorvastatin Calcium [Lipitor] 15 mg PO DAILY 01/24/22 02/06/22 History Multivitamin [Multivitamins Adult 1 tab PO DAILY 01/24/22 02/06/22 History Gummies] Prasterone (Dhea) [Dhea 25] 25 mg PO DAILY 01/24/22 02/06/22 History Ubidecarenone [Co Q-10] 300 mg PO DAILY 01/24/22 02/06/22 History Calcium Carbonate/Vitamin D3 02/06/22 History [Calcium 500 mg-Vit D3 5 mcg (200 Unit)] Allergies Allergy/AdvReac Type Severity Reaction Status Date / Time Penicillins AdvReac Rash/Hives Unverified 02/16/22 14:07 Sulfa (Sulfonamide AdvReac Rash/Hives Unverified 02/16/22 14:07 Antibiotics) Surgical - Exam Vital Signs Temp Pulse Resp BP Pulse Ox 97.9 F 82 17 145/96 99 02/16/22 14:08 02/16/22 14:08 02/16/22 14:08 02/16/22 14:08 02/16/22 14:08 BMI: 28.6 - General no distress - Eyes normal ocular movement - Neck trachea midline - Respiratory normal respiratory effort, clear to auscultation - Cardiovascular Rhythm: regular Heart Sounds: normal: S1, S2 - Abdomen Abdomen: soft, non tender, no guarding, no rigid, no rebound - Integumentary normal turgor - Neurologic no disoriented, no combative - Musculoskeletal normal gait, normal posture - Psychiatric oriented to time, oriented to person, oriented to place, speech is normal, memory intact Breast Exam: BRA: 36DD Inspection: Well-healed scars bilateral breast from breast lift incisions and placement of implants, bilateral grade 2 ptosis Palpation: Right breast:larger than left breast multiple positional exam no dominant masses or nodules of concern Right axilla: No adenopathy of concern Left breast: Multiple positional exam no dominant masses or nodules of concern Left axilla: No adenopathy of concern Results Mammogram reviewed from 01-24-22 Assessment and Plan Assessment: Impression: Fibrocystic breast changes Bilateral breast implants Nodules noted right breast in the outer quadrant for which core biopsy is recommended Plan: 1. Ultrasound right breast 2. ultrasound-guided core biopsy right breast if lesion able to be seen Cc: Dr. Valdivia
--- NOTE | 2022-02-16 15:44 | USB ---
Patient History: Menarche at age 14. First Full-Term at age 34. Late child-bearing (after 30). Perimenopausal. Currently using Hormonal Contraceptives, beginning at age 34 for 11 years, 8 months. 1989, Benign Excisional Biopsy on the left side. 2007, Bilateral Implants. Maternal grandmother had breast cancer, age 70. Risk Values: Vanda 5 year model risk: 1.9%. NCI Lifetime model risk: 13.3%. Prior Study Comparison: 11/01/2020 Bilateral Screening Mammogram, [facility]. 05/25/2021 Right Diagnostic Mammogram, [facility]. 01/24/2022 Bilateral MG 3D diag mammo imp w/cad SANDRA, [facility]. Findings: The upper outer quadrant of the right breast was scanned. 0.8 x 0.6 x 0.7cm round hypoechoic mass0.8 x 0.6 x 0.7cm round hypoechoic mass. Overall Assessment: Suspicious, BI-RAD 4 Management: Ultrasound Core Biopsy of the right breast. A clinical breast exam by your physician is recommended on an annual basis and results should be correlated with mammographic findings. Electronically signed and approved by: Sal Blackwood M.D. Radiologis
== END ==
LOC: WWCWWP 14:01
PROVIDERS: ATTEND Surgery
DX: N60.19 Diffuse cystic mastopathy of unspecified breast (principal); N63.0 Unspecified lump in unspecified breast; Z98.82 Breast implant status; E78.5 Hyperlipidemia, unspecified; Z88.0 Allergy status to penicillin; Z88.2 Allergy status to sulfonamides

== ENCOUNTER → 2022-03-08 | Day surgery (SDC) | payer OTHER ==
--- NOTE | 2022-03-15 08:31 | MM ---
Reason for Exam: Post Procedure Mammogram. Last screening mammogram was performed 1 month(s) ago. Patient History: Menarche at age 14. First Full-Term at age 34. Late child-bearing (after 30). Perimenopausal. Currently using Hormonal Contraceptives, beginning at age 34 for 11 years, 8 months. 1989, Benign Excisional Biopsy on the left side. 2007, Bilateral Implants. Maternal grandmother had breast cancer, age 70. Risk Values: Vanda 5 year model risk: 1.9%. NCI Lifetime model risk: 13.3%. Prior Study Comparison: 11/01/2020 Bilateral Screening Mammogram, [facility]. 05/25/2021 Right Diagnostic Mammogram, [facility]. 01/24/2022 Bilateral MG 3D diag mammo imp w/cad SANDRA, [facility]. Tissue Density: Right: The breast tissue is heterogeneously dense. This may lower the sensitivity of mammography. Pathology Description: Location: 8 o'clock, lower outer quadrant. Marker Left Behind. Needle Type: Oonair Cores: 1 Gauge: 12 The procedure of ultrasound guided core biopsy was explained to the patient. Benefits, alternatives, and risks were discussed. An informed consent was then obtained. The patient was placed in supine positioning for imaging and for the procedure. The overlying skin was prepped and draped in usual sterile fashion. Lidocaine buffered with bicarbonate was used as anesthetic into the skin and subcutaneous tissue up to area of concern in the right 8:00 breast. A joyce was made with surgical scalpel. Under ultrasound guidance, a 12-gauge vacuum assisted biopsy gun device was used to obtain 1 core sample. The lesion was no longer visible. Following this, a biopsy clip was left in lesion. The patient tolerated the procedure well without any immediate complication. The patient was kept in the radiology department for short stay after the procedure and then discharged home in stable condition. Impression: Successful, uncomplicated ultrasound guided core biopsy of area of concern in the right 8:00 breast, full pathology results to follow. Pathology Results: Result: Benign, Benign cyst. RIGHT BREAST, 8:00 POSITION, CORE BIOPSY: Fragmented benign breast cyst having apocrine metaplasia (see note). Overall Assessment: Benign Assessment: MG diagnostic mammo RT wo CAD - Right: Benign, BI-RAD 2. Management: Diagnostic Breast Ultrasound of the right breast in 6 months. Electronically signed and approved by: Sal Blackwood M.D. Radiologis
== END ==
LOC: RADUSWWP 12:47
PROVIDERS: ATTEND Surgery
DX: N60.01 Solitary cyst of right breast (principal); N60.81 Other benign mammary dysplasias of right breast; R92.8 Other abnormal and inconclusive findings on diagnostic imaging of breast
CPT/HCPCS: 88305; 77065; 19083; A4648

== ENCOUNTER → 2022-03-15 | Outpatient (CLI) | payer OTHER ==
--- NOTE | 2022-03-15 11:18 | P.PN ---
Progress Note - Text Progress Note Date: 03/15/22 Jennifer is a 56-year-old white female status post bilateral mammogram on 6121. This revealed an 8 mm mass in the right breast upper outer quadrant central position. It was recommended that the patient undergo an ultrasound core biopsy of the right breast. She did not have an ultrasound at the most recent visit. She does not feel any lumps masses or nodules of concern in either breast. She is not complaining of any nipple discharge or skin changes. She was scheduled for a breast biopsy in the past possibly 5 years ago on her left breast however when she went for the biopsy which was going to be a stereotactic core biopsy of the procedure was canceled. She has bilateral breast implants, these were placed 11 years ago. She has not problems with them. They are saline. There is no history of any trauma or infection in the breast. She underwent an ultrasound-guided core biopsy on . This was consistent with a benign breast cyst having upper quadrant mid apocrine metaplasia. She tolerated the biopsy without difficulty. This was reviewed by radiology and felt to be benign concordant. A repeat ultrasound of the right breast in 6 months is recommended. Biopsy site right breast clean and dry no evidence of infection or hematoma I discussed with the patient her pathology results that there felt to be benign concordant. Impression: Benign breast cyst with apocrine metaplasia Plan: Right breast ultrasound in 6 months with physician exam at that time Cc: Dr. Valdivia
== END ==
LOC: WWCWWP 11:00
PROVIDERS: ATTEND Surgery
DX: N60.81 Other benign mammary dysplasias of right breast (principal); N60.01 Solitary cyst of right breast; Z88.0 Allergy status to penicillin; Z88.2 Allergy status to sulfonamides

== ENCOUNTER → 2022-05-07 | Outpatient (CLI) | payer OTHER ==
--- NOTE | 2022-05-07 08:29 | US ---
EXAMINATION TYPE: US gallbladder DATE OF EXAM: 05/07/2022 COMPARISON: NONE CLINICAL HISTORY: R10.13 EPIGASTRIC PAIN. Patient states having pain that comes and goes. No prior s urgeries. TECHNIQUE: Multiple sonographic images of the right upper quadrant are obtained. FINDINGS: EXAM MEASUREMENTS: Liver Length: 16.2 cm Gallbladder Wall: 0.1 cm CBD: 0.6 cm Right Kidney: 11.9 x 5.0 x 4.6 cm Pancreas: wnl Liver: wnl , normal echotexture without surface nodularity. No suspicious lesion. Gallbladder: wnl, fold seen. No pericholecystic fluid, shadowing gallstones, or wall thickening. Evidence for sonographic Brar's sign: neg CBD: wnl Right Kidney: No hydronephrosis or masses seen. No shadowing gallstones. IMPRESSION: No acute process.
== END | disposition home or self-care (01) ==
LOC: RADUSWWP 07:39
PROVIDERS: ATTEND Internal Medicine Gastroenterology
DX: R10.13 Epigastric pain (principal)
CPT/HCPCS: 76705

== ENCOUNTER → 2022-08-20 | Outpatient (CLI) | payer OTHER ==
--- NOTE | 2022-08-20 09:25 | USB ---
Reason for Exam: Follow-up at short interval from prior study. Patient History: Menarche at age 14. First Full-Term at age 34. Late child-bearing (after 30). Perimenopausal. Currently using Hormonal Contraceptives, beginning at age 34 for 11 years, 8 months. 03/08/2022, Benign US biopsy breast VAD RT on the right side. 1989, Benign Excisional Biopsy on the left side. 2007, Bilateral Implants. Maternal grandmother had breast cancer, age 70. Risk Values: Vanda 5 year model risk: 2.4%. NCI Lifetime model risk: 16.5%. Technique: Method: Targeted. Prior Study Comparison: 05/25/2021 Right Diagnostic Mammogram, [facility]. 01/24/2022 Bilateral MG 3D diag mammo imp w/cad SANDRA, [facility]. 02/16/2022 Right US breast limited RT, [facility]. 03/08/2022 Right MG diagnostic mammo RT wo CAD, [facility]. Findings: The whole breast of the right breast, the axilla of the right breast and the retroareolar of the right breast were scanned. A complete US right breast area of concern, axillary tail is and retro-areolar region were reviewed. No solid or cystic masses are identified. Overall Assessment: Negative, BI-RAD 1 Management: Screening Mammogram of the right breast in 1 year. A clinical breast exam by your physician is recommended on an annual basis and results should be correlated with mammographic findings. This exam should not preclude additional follow-up of suspicious palpable abnormalities. Results were given to the patient verbally at the time of exam. Electronically signed and approved by: Sesar Vaughn DO
== END | disposition home or self-care (01) ==
LOC: RADUSWWP 08:57
PROVIDERS: ATTEND Surgery
DX: R92.8 Other abnormal and inconclusive findings on diagnostic imaging of breast (principal); Z80.3 Family history of malignant neoplasm of breast; Z98.890 Other specified postprocedural states

== ENCOUNTER → 2023-03-21 | Outpatient (CLI) | payer OTHER ==
--- NOTE | 2023-03-22 18:58 | MM ---
Reason for Exam: Screening (asymptomatic). Last mammogram was performed 1 year(s) and 1 month(s) ago. Patient History: Menarche at age 14. First Full-Term at age 34. Late child-bearing (after 30). Postmenopausal. Hormonal Contraceptives, starting at age 34 for 11 years, 8 months. 03/08/2022, Benign US biopsy breast VAD RT on the right side. 1989, Benign Excisional Biopsy on the left side. 2007, Bilateral Implants. Maternal grandmother had breast cancer, age 70. Risk Values: Vanda 5 year model risk: 2.4%. NCI Lifetime model risk: 16.3%. Prior Study Comparison: 05/25/2021 Right Diagnostic Mammogram, [facility]. 01/24/2022 Bilateral MG 3D diag mammo imp w/cad SANDRA, [facility]. 03/08/2022 Right MG diagnostic mammo RT wo CAD, [facility]. Tissue Density: There are scattered fibroglandular densities. Findings: Analyzed By CAD. Retropectoral saline implants on both sides. Unchanged posterior upper outer quadrant focal asymmetry on the right. There is no suspicious group of microcalcifications or new suspicious mass in either breast. Overall Assessment: Benign, BI-RAD 2 Management: Screening Mammogram of both breasts in 1 year. . Patient should continue monthly self-breast exams. A clinical breast exam by your physician is recommended on an annual basis. This exam should not preclude additional follow-up of suspicious palpable abnormalities. Note on Vanda scores and lifetime risk: 1. A Vanda score greater than 3% is considered moderate risk. If this is the case, consider specialist referral to assess eligibility for a risk reducing agent. 2. If overall lifetime risk for the development of breast cancer is 20% or higher, the patient may qualify for future screening with alternating mammogram and breast MRI. Electronically signed and approved by: Matt Granda M.D. Radiologist
== END | disposition home or self-care (01) ==
LOC: RADMAMWWP 08:14
PROVIDERS: ATTEND Family Medicine
DX: Z12.31 Encounter for screening mammogram for malignant neoplasm of breast (principal); Z78.0 Asymptomatic menopausal state; Z80.3 Family history of malignant neoplasm of breast
CPT/HCPCS: 77063; 77067

== ENCOUNTER → 2024-11-24 | Outpatient (CLI) | payer OTHER ==
[2024-11-24 08:04] VITALS: BP 132/89; PULSE 74; RESP 16; TEMP 98.2
--- NOTE | 2024-11-24 08:23 | P.HPOB ---
History of Present Illness H&P Date: 11/24/24 Chief Complaint: The patient is here for her routine gynecologic exam and ma mmogram. -year-old G2, P2 with an LMP of 2011. The patient is without gynecologic complaints and denies any postmenopausal bleeding. She has a known rectocele and she denies any problems related to this. Review of Systems The patient has gained 16 pounds over the last 2 years. She denies respiratory, cardiac, or G.I. problems. She has had some issues with insomnia, but this seems to be improving. 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 History of Any Multi-Drug Resistant Organisms: None Reported Past Surgical History: Breast Surgery, Orthopedic Surgery Additional Past Surgical History / Comment(s): Bladder sling procedure 2013, bilateral breast augmentation (saline implants)2017. Knee surgery. Left foot surgery. Colonoscopy 2020(next after 10yr). Past Anesthesia/Blood Transfusion Reactions: No Reported Reaction Past Psychological History: No Psychological Hx Reported Smoking Status: Never smoker Past Alcohol Use History: Rare (1 drink per year.) Past Drug Use History: None Reported Additional History: She has been since 1993 and does not work outside of the home. - Past Family History Mother Family Medical History: Cancer Additional Family Medical History / Comment(s): Pancreatic cancer. Maternal grandmother had breast cancer. Father Family Medical History: Cancer Additional Family Medical History / Comment(s): Lung cancer. Paternal grandmother had an [place]. Medications and Allergies Home Medications Medication Instructions Recorded Confirmed Type Atorvastatin Calcium [Lipitor] 15 mg PO DAILY 01/24/22 11/24/24 History Multivitamin [Multivitamins Adult 1 tab PO DAILY 01/24/22 11/24/24 History Gummies] [place]-3/Dha/Epa/Fish Oil [Fish Oil 1 each PO DAILY 11/24/24 11/24/24 History 1,000 mg Softgel] Allergies Allergy/AdvReac Type Severity Reaction Status Date / Time Penicillins AdvReac Rash/Hives Unverified 11/24/24 07:49 Sulfa (Sulfonamide AdvReac Rash/Hives Unverified 11/24/24 07:49 Antibiotics) Exam Vital Signs Temp Pulse Resp BP 11/24/24 07:53 98.2 F 74 16 132/89 Intake and Output 11/23/24 11/24/24 11/24/24 22:59 06:59 14:59 Other: Weight 87.09 kg Height 5 feet 4 inches, weight 192 pounds, BMI 33.0. This is a well-developed well-nourished white female who is alert and oriented times 3 in no acute distress. HEENT: Within normal limits. NECK: Supple without mass or thyromegaly. CHEST AND LUNGS: Clear to auscultation. HEART: Regular rate and rhythm. BREASTS: Are without mass or discharge. Breasts are consistent with bilateral implants. AXILLARY EXAM: Negative for adenopathy. BACK: Negative for CVA tenderness. ABDOMEN: Soft, nontender, without palpable masses. PELVIC EXAM: Normal external genitalia with minimal atrophy. Cervix and vagina appear normal with minimal atrophy. There is no unusual discharge. There is a stable grade 2 rectocele noted. The uterus is midposition, nongravid size and nontender. There are no palpable adnexal masses or tenderness. RECTAL EXAM: Rectovaginal exam is negative for mass or tenderness and is negative for occult blood. The rectal exam confirms a grade 2 rectocele. EXTREMITIES: Nontender. IMPRESSION: 1. 59-year-old menopausal female with stable asymptomatic grade 2 rectocele and otherwise unremarkable gynecologic exam. PLAN: 1. Pap smear was deferred since she had a negative Pap smear cotest on 02/12/2022. 2. Self breast awareness was discussed with the patient. We have also discussed symptoms associated with inflammatory breast cancer. 3. Screening mammogram was done today. 4. Continue conservative management for grade 2 rectocele. I have stressed the importance of not holding stool longer than necessary. She will call if she has any problems with this 5. She was advised to return in one year for her annual well woman exam.
--- NOTE | 2024-11-26 13:48 | MM ---
Reason for Exam: Screening (asymptomatic). Last mammogram was performed 1 year(s) and 9 month(s) ago. Patient History: Menarche at age 14. First Full-Term at age 34. Late child-bearing (after 30). Postmenopausal. Hormonal Contraceptives, starting at age 34 for 11 years, 8 months. 03/08/2022, Benign US biopsy breast VAD RT on the right side. 1989, Benign Excisional Biopsy on the left side. 2007, Bilateral Implants. Maternal grandmother had breast cancer, age 70. Risk Values: Vanda 5 year model risk: 2.7%. NCI Lifetime model risk: 15.6%. Prior Study Comparison: 01/24/2022 Bilateral MG 3D diag mammo imp w/cad SANDRA, [facility]. 03/08/2022 Right MG diagnostic mammo RT wo CAD, [facility]. 03/21/2023 Bilateral MG 3D screen mammo imp/cad., [facility]. Tissue Density: The breasts are heterogeneously dense, which may obscure small masses. Findings: Analyzed By CAD. There is no suspicious group of microcalcifications or new suspicious mass in either breast. Breast implants are intact. Overall Assessment: Benign, BI-RAD 2 Management: Screening Mammogram of both breasts in 1 year. . Patient should continue monthly self-breast exams. A clinical breast exam by your physician is recommended on an annual basis. This exam should not preclude additional follow-up of suspicious palpable abnormalities. Note on Vanda scores and lifetime risk: 1. A Vanda score greater than 3% is considered moderate risk. If this is the case, consider specialist referral to assess eligibility for a risk reducing agent. 2. If overall lifetime risk for the development of breast cancer is 20% or higher, the patient may qualify for future screening with alternating mammogram and breast MRI. [facility], , 11/24/2024 7:23 AM. Electronically signed and approved by: Sal Blackwood M.D. Radiologis
== END | disposition home or self-care (01) ==
LOC: RADMAMWWP 07:04
PROVIDERS: ATTEND Obstetrics & Gynecology
DX: Z12.31 Encounter for screening mammogram for malignant neoplasm of breast (principal); R92.333 Mammographic heterogeneous density, bilateral breasts; Z78.0 Asymptomatic menopausal state; Z80.3 Family history of malignant neoplasm of breast; Z98.82 Breast implant status; Z92.0 Personal history of contraception
CPT/HCPCS: 77063; 77067